=== PATIENT | female | born 1990 | race American Indian/Alaskan Native ===

== ENCOUNTER 2017-04-26 11:04 | Outpatient (CLI) | payer MEDICAID ==
[2017-04-26] MEDS ORDERED: CELESTONE SOLUSPAN IM SCH (12:00)
[2017-04-26] MEDS ORDERED: LACTATED RINGERS 1,000 ML ONE (12:09)
[2017-04-26 12:51] VITALS: BP 140/60
[2017-04-26] MEDS ORDERED: LACTATED RINGERS 1,000 ML IV SCH (13:00)
== END 2017-04-26 13:00 | disposition home or self-care (01) ==
LOC: TRG 11:04
PROVIDERS: ATTEND Obstetrics & Gynecology
DX: O47.03 False labor before 37 completed weeks of gestation, third trimester (principal); Z3A.32 32 weeks gestation of pregnancy
CPT/HCPCS: 59025; 96360; 96372; J0702; J7120

== ENCOUNTER 2017-04-27 12:29 | Outpatient (CLI) | payer MEDICAID ==
[2017-04-27] MEDS ORDERED: CELESTONE SOLUSPAN IM ONE (13:00)
== END 2017-04-27 13:04 | disposition home or self-care (01) ==
LOC: TRG 12:29
PROVIDERS: ATTEND Obstetrics & Gynecology
DX: O47.03 False labor before 37 completed weeks of gestation, third trimester (principal); Z3A.32 32 weeks gestation of pregnancy
CPT/HCPCS: 96372; J0702

== ENCOUNTER 2017-05-15 22:03 | Outpatient (CLI) | payer MEDICAID ==
[2017-05-15] MEDS ORDERED: LACTATED RINGERS 500 ML IV ONE (22:15)
[2017-05-15 23:44] VITALS: BP 136/94
== END 2017-05-16 00:29 | disposition home or self-care (01) ==
LOC: TRG 22:03
PROVIDERS: ATTEND Obstetrics & Gynecology
DX: O47.03 False labor before 37 completed weeks of gestation, third trimester (principal); Z3A.34 34 weeks gestation of pregnancy
CPT/HCPCS: 59025; J7120

== ENCOUNTER 2017-05-16 11:44 | Outpatient (CLI) | payer MEDICAID ==
[2017-05-16 12:21] LABS: Hemoglobin 11.8 gm/dl (10.1-14.3); Mean Corpuscular HGB Conc 34 % (30-34); Mean Corpuscular Hemoglobin 31 pg (28-32); Mean Corpuscular Volume 93 fl (79-97); Platelet Count 301 K/mm3 (140-440); Red Blood Count 3.77 M/mm3 (3.65-5.03); Red Cell Distribution Width 13.4 % (13.2-15.2)
[2017-05-16 12:26] LABS: Bacteria,Urine 1+ /HPF (Negative); Bilirubin,Urine NEG (Negative); Blood,Urine NEG (Negative); Color,Urine Yellow (Yellow); Mucus,Urine 3+ /HPF
[2017-05-16 12:33] LABS: Amphetamine Screen,Urine PRESUMPTIVE NEGATIVE; Benzodiazepines Screen,Urine PRESUMPTIVE NEGATIVE; Cannabinoid Screen,Urine PRESUMPTIVE NEGATIVE; Methadone Screen,Urine PRESUMPTIVE NEGATIVE; Opiate Screen,Urine PRESUMPTIVE NEGATIVE
[2017-05-16 12:42] LABS: Alanine Aminotransferase 11 units/L (7-56)
[2017-05-16 12:47] LABS: Cocaine Screen,Urine PRESUMPTIVE POSITIVE
[2017-05-16 14:15] VITALS: BP 113/64
== END 2017-05-16 14:25 | disposition home or self-care (01) ==
LOC: TRG 11:44
PROVIDERS: ATTEND Obstetrics & Gynecology
DX: O47.03 False labor before 37 completed weeks of gestation, third trimester (principal); Z79.899 Other long term (current) drug therapy; Z3A.35 35 weeks gestation of pregnancy
CPT/HCPCS: 36415; 59025; 80307; 81001; 82565; 83615; 84450; 84460; 84550; 85027

== ENCOUNTER 2017-05-30 14:24 | Outpatient (CLI) | payer MEDICAID ==
[2017-05-30 15:23] LABS: Hematocrit 34.3 % (30.3-42.9); Hemoglobin 11.9 gm/dl (10.1-14.3); Mean Corpuscular HGB Conc 35 % (30-34); Mean Corpuscular Hemoglobin 32 pg (28-32); Mean Corpuscular Volume 93 fl (79-97); Platelet Count 306 K/mm3 (140-440); Red Blood Count 3.71 M/mm3 (3.65-5.03); Red Cell Distribution Width 13.3 % (13.2-15.2)
[2017-05-30 15:25] LABS: Bilirubin,Urine NEG (Negative); Blood,Urine NEG (Negative); Color,Urine Yellow (Yellow); Mucus,Urine FEW /HPF; Protein,Urine <15 mg/dL mg/dL (Negative); RBC,Urine < 1.0 /HPF (0.0-6.0)
[2017-05-30 15:40] LABS: Alanine Aminotransferase 14 units/L (7-56); Uric Acid 4.8 mg/dL (3.5-7.6)
[2017-05-30 15:59] VITALS: BP 109/68
== END 2017-05-30 16:32 | disposition home or self-care (01) ==
LOC: TRG 14:24
PROVIDERS: ATTEND Obstetrics & Gynecology
DX: O47.1 False labor at or after 37 completed weeks of gestation (principal); Z3A.37 37 weeks gestation of pregnancy
CPT/HCPCS: 36415; 59025; 81001; 82565; 83615; 84450; 84460; 84550; 85027